=== PATIENT | female | born 1955 | race Caucasian/White ===

== ENCOUNTER 2019-02-24 07:36 | Emergency (ER) | payer BC ==
[2019-02-24 07:52] VITALS: BP 143/75
--- NOTE | 2019-02-24 08:04 | UC ---
Skin Complaint HPI - HPI Summary HPI Summary: Has had a pimple in between her breasts for years. She states it often goes away on its own but it is always in the same place. Yesterday she popped it and blood and pus came out. Does not feel tender today. - History of Current Complaint Chief Complaint: UCSkin Time Seen by Provider: 02/24/19 07:56 Stated Complaint: LAS ON CHEST Hx Obtained From: Patient Onset Severity: Mild Pain Intensity: 0 Pain Scale Used: 0-10 Numeric Location: Discrete Character: Raised Aggravating Factor(s): Nothing Alleviating Factor(s): Nothing - Allergy/Home Medications Allergies/Adverse Reactions: Allergies Allergy/AdvReac Type Severity Reaction Status Date / Time metronidazole [From Flagyl] Allergy Severe Hives Verified 02/24/19 07:53 MS Amoxicillin Allergy Rash Verified 06/08/14 11:17 [From Augmentin] MS Clavulanic Acid Allergy Rash Verified 06/08/14 11:17 [From Augmentin] MS Sulfa Antibiotics Allergy Unknown Verified 06/08/14 11:17 [Sulfa Antibiotics] Reaction Details Home Medications: Home Medications Cetirizine* [ZyrTEC 10 MG TAB*] 10 mg PO Q8HR PRN MDD 10mg 02/24/19 [History Confirmed 02/24/19] raNITIdine HCl [Zantac] 150 mg PO DAILY 02/24/19 [History Confirmed 02/24/19] PMH/Surg Hx/FS Hx/Imm Hx - Additional Past Medical History Additional PMH: no chronic conditions. Previously Healthy: Yes - Surgical History Surgical History: Yes Surgery Procedure, Year, and Place: wisdom teeth removal - Social History Alcohol Use: Daily Substance Use Type: None Smoking Status (MU): Never Smoked Tobacco Review of Systems All Other Systems Reviewed And Are Negative: Yes Constitutional: Positive: Negative. Negative: Fever Skin: Positive: Other - pimple. Negative: Negative, Rash Musculoskeletal: Negative: Negative Physical Exam Triage Information Reviewed: Yes Appearance: Well-Appearing Vital Signs: Initial Vital Signs Temp 99.4 F 02/24/19 07:46 Pulse 82 02/24/19 07:46 Resp 16 02/24/19 07:46 BP 143/75 02/24/19 07:46 Pulse Ox 98 02/24/19 07:46 Vital Signs Reviewed: Yes Skin: Positive: Significant Lesion(s) - small open comedone, nontender, no redness no discharge during exam.. Negative: Other - no pain w/ movement Course/Dx - Course Course Of Treatment: comedone that has been present for years. she expressed purulent material yesterday and wanted to come in to know what to do next. No indication for antibx. discussed ways to manage comedones/pimples. advised warm compresses. no other signs of serious illness. vitals reviewed. - Differential Diagnoses - Skin Complaint Differential Diagnoses: Abscess, Other - Diagnoses Provider Diagnosis: Open comedone Discharge - Sign-Out/Discharge Documenting (check all that apply): Patient Departure All imaging exams completed and their final reports reviewed: No Studies - Discharge Plan Condition: Good Disposition: HOME Patient Education Materials: Abscess (ED) Referrals: Juliocesar Tai MD [Primary Care Provider] - Additional Instructions: You do not have an abscess but I wanted to give you more information about when to seek medical attention should the pimple change. Please keep area clean, massage area in warm shower and use warm compresses. - Billing Disposition and Condition Condition: GOOD Disposition: Home - Attestation Statements Provider Attestation: Per institutional requirements, I have reviewed the chart, however, I was not consulted specifically or made aware of this patient by the midlevel provider. I did not personally evaluate, interact with , or disposition this patient.
== END 2019-02-24 08:09 | disposition home or self-care (01) ==
LOC: UCEAST 07:36
DX: L70.0 Acne vulgaris (principal); Z88.2 Allergy status to sulfonamides
CPT/HCPCS: 99211; G0463

== ENCOUNTER 2021-06-30 17:45 | Observation (INO) ==
[2021-07-01] MEDS ORDERED: MINERAL OIL PR ONE (00:49)
[2021-07-01] MEDS ORDERED: GLYCERIN PR ONE (00:49)
[2021-07-01] MEDS ORDERED: WATER PR ONE (00:49)
[2021-07-01] MEDS ORDERED: Mineral Oil ENEMA 118 ML/BOTTLE BOTTLE PR ONE ×2 (01:22→13:24)
[2021-07-01] MEDS ORDERED: Lactulose 30 ml UDC NG TUBE ONE (03:36)
[2021-07-01] MEDS ORDERED: Lactulose 30 ml UDC PO ONE (03:36)
[2021-07-01] MEDS ORDERED: PEG 3000 GI LAVAGE 1 GALLON PO ONE ×2 (03:37→12:34)
[2021-07-01 04:15] LABS: ABS Basophils 0.1 10^3/ul (0-0.2); ABS Eosinophils 0.1 10^3/ul (0-0.6); ABS Lymphocytes 1.4 10^3/ul (1.0-4.8); ABS Monocytes 0.6 10^3/ul (0-0.8); ABS Neutrophils 3.6 10^3/ul (1.5-7.7); Eosinophil % 2.1 %; Hematocrit 35 % (35-47); Hemoglobin 12.1 g/dL (12.0-16.0); Lymphocyte % 24.7 %; Mean Corpuscular HGB Conc 34 g/dL (31-36); Mean Corpuscular Hemoglobin 32 pg (27-31); Mean Corpuscular Volume 93 fL (80-97); Mean Platelet Volume 6.8 fL (7.4-10.4); Platelet Count 456 10^3/uL (150-450); Red Blood Count 3.82 10^6 /uL (3.70-4.87); Red Cell Distribution Width 13 % (10-15); White Blood Count 5.8 10^3/uL (3.5-10.8)
[2021-07-01 04:31] LABS: Albumin 3.8 g/dL (3.2-5.2); Albumin/Globulin Ratio 1.2 (1-3); Calcium 9.1 mg/dL (8.6-10.3); Globulin 3.2 g/dL (2-4); Total Bilirubin 0.4 mg/dL (0.2-1.0); eGFR CKD-EPI 79.8 (>60)
[2021-07-01] MEDS ORDERED: Ondansetron 4 mg VIAL 2 MG/ML 2 ml VIAL IV ONE ×2 (06:48→10:15)
[2021-07-01] MEDS ORDERED: ceFAZolin 1 GM ADVAN 1 GM in NS 0.9% 50 ML 50 ML IVPB ONE (06:52)
[2021-07-01] MEDS ORDERED: Ondansetron ODT 4 mg TAB 4 MG TAB SL PRN (10:52)
[2021-07-01 12:58] LABS: Rapid COVID-19 Molecular Undetected (Undetected)
[2021-07-01] MEDS ORDERED: Ondansetron 4 mg VIAL 2 MG/ML 2 ml VIAL IV SCH (13:00)
[2021-07-01] MEDS ORDERED: Enoxaparin 40 MG/0.4 ML SYR SUBCUT SCH (15:00)
[2021-07-01] MEDS ORDERED: Metoclopramide 5 MG/ML VIAL (10 mg) IV PRN (16:48)
[2021-07-01] MEDS ORDERED: Ondansetron 4 mg VIAL 2 MG/ML 2 ml VIAL IV PRN (16:49)
[2021-07-01] MEDS: Saline NASAL SPRAY 0.65% BTL BOTH NARES SCH (17:10)
[2021-07-01] MEDS: Lactated Ringers 1000 ml BAG 1,000 ML IV ONE ×2 (18:08→18:13)
[2021-07-01] MEDS: Lactulose 30 ml UDC PO SCH ×2 (18:10→21:39)
[2021-07-01] MEDS: Polyethylene Glycol 3350 17 GM PACKET PO SCH (21:40)
[2021-07-01] MEDS ORDERED: Lactated Ringers 1000 ml BAG 1,000 ML IV ONE (22:00)
[2021-07-02 04:11] LABS: Urine Appearance Cloudy; Urine Bilirubin Negative (Negative); Urine Blood 1+ (Negative); Urine Color Yellow; Urine Glucose Negative (Negative); Urine Ketones Trace (Negative); Urine Nitrite Negative (Negative); Urine Protein 1+(30 mg/dL) (Negative); Urine Specific Gravity 1.024 (1.002-1.030); Urine Urobilinogen Negative (Negative)
[2021-07-02 04:29] LABS: Urine Amorphous Crystals Present (Absent); Urine Bacteria Absent (Absent); Urine Red Blood Cell 3+(>10/hpf) (Absent); Urine White Blood Cell 1+(6-10/hpf) (Absent)
[2021-07-02 05:50] LABS: Hematocrit 32 % (35-47); Hemoglobin 10.8 g/dL (12.0-16.0); Mean Corpuscular HGB Conc 33 g/dL (31-36); Mean Corpuscular Hemoglobin 31 pg (27-31); Mean Corpuscular Volume 92 fL (80-97); Mean Platelet Volume 6.6 fL (7.4-10.4); Platelet Count 411 10^3/uL (150-450); Red Blood Count 3.51 10^6 /uL (3.70-4.87); Red Cell Distribution Width 13 % (10-15); White Blood Count 5.7 10^3/uL (3.5-10.8)
[2021-07-02 06:27] LABS: Albumin 3.3 g/dL (3.2-5.2); Albumin/Globulin Ratio 1.3 (1-3); Calcium 8.7 mg/dL (8.6-10.3); Globulin 2.6 g/dL (2-4); Magnesium 2.2 mg/dL (1.9-2.7); Potassium 3.7 mmol/L (3.5-5.0); Total Bilirubin 0.4 mg/dL (0.2-1.0); Total Protein 5.9 g/dL (6.4-8.9); eGFR CKD-EPI 96.5 (>60)
[2021-07-02] MEDS ORDERED: Magnesium CITRATE LIQ 300 ML BTL PO ONE (06:54)
[2021-07-02 07:54] LABS: Ferritin 117.8 ng/mL (11-307)
[2021-07-02] MEDS: Polyethylene Glycol 3350 17 GM PACKET PO SCH (08:12)
[2021-07-02] MEDS: Saline NASAL SPRAY 0.65% BTL BOTH NARES SCH (08:13)
[2021-07-02] MEDS: Lactulose 30 ml UDC PO SCH (08:32)
[2021-07-02 13:05] VITALS: BP 152/73
[2021-07-02] MEDS ORDERED: Psyllium PAK PO SCH (21:00)
[2021-07-03] MEDS ORDERED: Polyethylene Glycol 3350 17 GM PACKET PO SCH (08:00)
[2021-07-05 13:27] LABS: % Iron Saturation 19 % (14 - 50); Total Iron Binding Capacity 163 mcg/dL (250 - 400)
== END 2021-07-02 16:00 | disposition home or self-care (01) ==
LOC: EDHOLD 17:45 → ED 17:45 → MEDTELE 07-01 17:00
PROVIDERS: ADMIT Internal Medicine; ATTEND Internal Medicine